=== PATIENT | female | born 1980 | race Caucasian/White ===

== ENCOUNTER 2025-03-06 07:46 | Outpatient (RCR) | payer OTHER, SELFPAY | END 2025-03-06 23:59 | disposition home or self-care (01) | LOC: RPT 07:46 | PROVIDERS: ATTENDING PHYSICIAN Obstetrics & Gynecology; FAMILY PHYSICIAN Family Medicine | DX: N39.3 Stress incontinence (female) (male) (principal); M62.89 Other specified disorders of muscle; Z73.6 Limitation of activities due to disability | CPT/HCPCS: 97162; 97530 ==

== ENCOUNTER 2025-04-04 13:15 | Outpatient (RCR) | payer OTHER, SELFPAY | END 2025-04-04 23:59 | disposition home or self-care (01) | LOC: RPT 13:15 | PROVIDERS: ATTENDING PHYSICIAN Obstetrics & Gynecology; FAMILY PHYSICIAN Family Medicine | DX: N39.3 Stress incontinence (female) (male) (principal); M62.89 Other specified disorders of muscle; Z73.6 Limitation of activities due to disability | CPT/HCPCS: 97110; 97112; 97530 ==

== ENCOUNTER 2025-05-02 08:57 | Outpatient (RCR) | payer OTHER, SELFPAY | END 2025-05-02 23:59 | disposition home or self-care (01) | LOC: RPT 08:57 | PROVIDERS: ATTENDING PHYSICIAN Obstetrics & Gynecology; FAMILY PHYSICIAN Family Medicine | DX: N39.3 Stress incontinence (female) (male) (principal); M62.89 Other specified disorders of muscle; Z73.6 Limitation of activities due to disability | CPT/HCPCS: 97014; 97110; 97112; 97530 ==

== ENCOUNTER 2025-06-06 07:31 | Outpatient (RCR) | payer OTHER, SELFPAY | END 2025-06-06 23:59 | disposition home or self-care (01) | LOC: RPT 07:31 | PROVIDERS: ATTENDING PHYSICIAN Obstetrics & Gynecology; FAMILY PHYSICIAN Family Medicine | DX: N39.3 Stress incontinence (female) (male) (principal); M62.89 Other specified disorders of muscle; Z73.6 Limitation of activities due to disability | CPT/HCPCS: 97014; 97110; 97112; 97530 ==

== ENCOUNTER 2025-06-20 07:02 | Outpatient (RCR) | payer OTHER, SELFPAY | END 2025-06-20 23:59 | disposition home or self-care (01) | LOC: RPT 07:02 | PROVIDERS: ATTENDING PHYSICIAN Obstetrics & Gynecology; FAMILY PHYSICIAN Family Medicine | DX: N39.3 Stress incontinence (female) (male) (principal); M62.89 Other specified disorders of muscle; Z73.6 Limitation of activities due to disability | CPT/HCPCS: 97014; 97110; 97112; 97530 ==

== ENCOUNTER 2025-06-26 09:48 | Emergency (ER) | payer OTHER, SELFPAY ==
--- NOTE | 2025-06-26 10:08 | ED.GENMED ---
History of Present Illness
General
Chief Complaint: Chest Problem
Time Seen by Provider: 06/26/25 09:56
History of Present Illness
History of Present Illness:
FOCUSED PAST MEDICAL HISTORY
- Borderline hyperlipidemia, no history of high blood pressure, never smoked, father had coronary disease in his 70s, not a diabetic
REVIEW OF OLD RECORDS
- The patient was diagnosed with a missed in 2019
Note:
CHIEF COMPLAINT(S)
Chest tightness.
HISTORY OF PRESENT ILLNESS
The patient is a 44-year-old female presenting with a chief complaint of chest tightness that has persisted for a few months. She reports the tightness is constant throughout the day and is noticeable in various situations, such as driving or lying
on her side. The patient also experienced a dry cough over the summer, which seemed to occur during conversations. While she reports becoming slightly winded when climbing stairs quickly, she does not experience discomfort with regular activities or
walking. The tightness is present throughout the day, from the time she wakes up, but she clarifies that it is not of severe pain. She describes being aware of the tightness more than feeling an acute pain. There is no associated shortness of breath
or wheezing, and she denies experiencing significant anxiety. The patient mentions potential costochondral sensitivity, as she feels a sensation when the area is palpated. There is no history of high cholesterol medication use as her cholesterol
levels were only mildly elevated per previous blood work in January. The patient has not seen a balance wheel screw hole driller for these symptoms. Her father had a history of heart attacks in his 70s and has received stents.
PAST MEDICAL AND SURGICAL HISTORY
Higher cholesterol noted in past blood tests.
FAMILY HISTORY
The patients father has a history of heart attacks and has undergone stenting, which began in his 60s.
EXTERNAL RECORDS REVIEWED
According to the patients report, blood work conducted in January showed mildly elevated cholesterol levels.
REVIEW OF SYSTEMS
- Cardiovascular: Persistent tightness in the chest for several months, no worsening with exertion beyond mild windedness.
- Respiratory: No shortness of breath, no wheezing.
- Gastrointestinal: Occasional sensation similar to heartburn but without typical acid reflux.
- Musculoskeletal: Sensation noticed when chest wall is palpated.
PHYSICAL EXAM
General: Alert, no acute distress.
Skin: Warm, dry.
Head: Normocephalic, atraumatic.
Neck: Supple, trachea midline.
Eye, Ears, Nose, Mouth, and Throat: Oral mucosa moist.
Cardiovascular: Normal peripheral perfusion, No edema. Very mild anterior chest wall tenderness.
Respiratory: Respirations are non-labored.
Gastrointestinal: Abdomen nondistended.
Back: Normal range of motion, Normal alignment.
Musculoskeletal: Normal range of motion, normal strength.
Neurological: Alert and oriented to person, place, time, and situation, No focal neurological deficit observed.
Psychiatric: Cooperative, appropriate mood & affect.
PLAN
1. Conduct cardiac blood work to assess for cardiac-related issues.
2. Obtain a chest X-ray for further evaluation of chest tightness.
3. Administer a dose of Pepcid (Famotidine) to assess response regarding any gastroesophageal component.
4. Discuss potential trial of [id number]-[id number] Omeprazole for gastrointestinal symptom relief.
5. Recommend outpatient cardiology referral for further cardiac evaluation.
6. Monitor progress and reevaluate symptoms, especially as related to potential gastrointestinal reflux.
DIFFERENTIAL DIAGNOSIS
The Differential Diagnosis includes, in no particular order and is not limited to:
1. Gastroesophageal Reflux Disease (GERD)
2. Costochondritis
3. Angina Pectoris
4. Non-cardiac chest pain
5. Pulmonary hypertension
6. Anxiety or stress-induced chest pain
7. Esophageal spasm
8. Musculoskeletal pain
9. Coronary Artery Disease
10. Atypical presentation of a cardiac issue
RADIOLOGY
- Chest x-ray
EKG
- Sinus 67, nonspecific ST abnormality with no old to compare
- I did review the EKG from primary care doctor's office which also showed nonspecific ST abnormality
LABS
- Troponin 0.012
UPDATE
-SUMMARY OF ENCOUNTER
The patient, a 44-year-old female, presented to the emergency department (ED) with persistent chest tightness that she has been experiencing for several months. Upon evaluation, cardiac blood work was unremarkable, and her vital signs were stable.
The EKG showed some non-specific abnormalities, which were consistent with previous EKGs and not indicative of any acute condition. A chest x-ray was also performed and appeared normal. Given the absence of acute cardiac findings, the patient was
managed conservatively. A dose of famotidine was administered to assess for any gastrointestinal-related symptoms. The patient was advised that, although immediate quality assurance qa lab analyst intervention was not needed, outpatient follow-up with a balance wheel screw hole driller is
recommended to further assess any potential underlying heart issues, possibly including a stress test or echocardiography. The care plan was formulated to ensure timely cardiology consultation due to the persistence of her symptoms and family
history considerations.
DISPOSITION
Discharge
ASSESSMENT
Chronic chest tightness with non-specific EKG abnormalities, no acute cardiac event.
EMERGENCY TREATMENTS ADMINISTERED
Famotidine
PLAN
The patient is advised to consult with a balance wheel screw hole driller for further evaluation of her symptoms. Outpatient cardiology follow-up is arranged to facilitate levy appointment scheduling. The patient should monitor her symptoms and seek immediate medical
attention if she experiences sweating, severe pressure, or any worsening symptoms. Consideration of qgjz-jrn-fuunzyf omeprazole for potential gastrointestinal symptoms was also discussed.
INDEPENDENT REVIEW OF LABS AND INTERPRETATION OF TESTS
My independent review of the cardiac blood work indicates no acute cardiac abnormalities or need for immediate intervention. My independent interpretation of the EKG reveals non-specific abnormalities not indicative of a specific condition. My
independent interpretation of the chest x-ray shows no acute abnormalities.
PATIENT EDUCATION AND COUNSELING
The patient was informed about the non-specific nature of the EKG abnormalities and reassured of no acute cardiac events based on current evaluations. She was counseled on recognizing symptoms that would warrant returning to the ED, such as
sweating, severe pressure, or any worsening symptoms. The importance of follow-up with cardiology to explore possible underlying conditions was stressed.
FOLLOW-UP INSTRUCTIONS
The patient is instructed to expect contact from a cardiology group for a follow-up appointment in the next day or two. She should return to the ED if she experiences any aggravating symptoms such as sweating, severe chest pressure, or new symptoms.
MEDICATION RECONCILIATION
Famotidine administered.
MEDICAL DECISION MAKING
- Number and Complexity of Problems Addressed: Chronic conditions affecting care: Higher cholesterol noted in past blood tests. Differential diagnosis includes gastroesophageal reflux disease (GERD), costochondritis, angina pectoris, non-cardiac
chest pain, pulmonary hypertension, anxiety or stress-induced chest pain, esophageal spasm, musculoskeletal pain, coronary artery disease, atypical presentation of a cardiac issue.
- Data:
Category 1
External records reviewed: reviewed outpatient pharmacy records and previous blood work indicating mildly elevated cholesterol.
The EKG and chest x-ray were independently interpreted.
- Risk:
Prescription medication was prescribed: Famotidine for evaluation of gastrointestinal symptoms.
Consideration of Admission/Observation: Escalation of care including admission/observation was considered given the complexity and risk of the patients presenting complaint, exam findings, and/or their underlying comorbidities. However, ultimately I
feel the patient is safe for outpatient management with close follow-up. Reasoning: Work-up reassuring, does not reveal any acute life/organ threatening processes, patients symptoms well controlled upon reevaluation, reexamination is reassuring,
vitals are stable, patient agreeable with discharge, reliable for follow-up.
DIAGNOSIS
Chest tightness, unspecified (R07.89)
- The patient was given some Pepcid with questionable improvement
- Other than reported history of borderline hyperlipidemia, no significant cardiac risk factors
- The patient has no exertional component
- The symptoms are not worse today and have been essentially constant for the past 1 to 2 months with normal troponin
- EKG shows nonspecific finding I recommend cardiology follow-up urgently
Phy Exam
Physical Exam
Physical Exam:
See HPI
Course
Orders/Labs/Results
Orders:
Orders
06/26/25 09:53
ECG [Electrocardiogram (*1)] Urgent
Reason for Study: Chest Pain
EKG- Treatment ONCE
06/26/25 09:57
Electrocardiogram (*1) Urgent
Reason for Study: Chest Pain
EKG- Treatment ONCE
06/26/25 10:04
Complete Blood Count/With Diff Urgent
Comprehensive Metabolic Panel Urgent
Troponin I Urgent
06/26/25 10:06
Famotidine [Pepcid] 20 mg IV NOW STA
CR Chest - 2 Views Urgent
Comment:
Reason For Exam: pain
Abnormal Lab Results
06/26/25
10:04
Absolute Monos (auto) 0.7 H 10^3/uL
(0.1-0.6)
Monocytes % 10.0 H %
(1.7-9.3)
Sodium 133 L mmol/L
(135-145)
ALT 39 H U/L
(0-35)
06/26/25 10:04
06/26/25 10:04
Vital Signs
Initial and Last Documented VS:
Initial Vital Signs
Pulse Resp Pulse Ox
67 16 100
06/26/25 09:49 06/26/25 09:49 06/26/25 09:49
Last Documented Vital Signs
Pulse Resp BP Pulse Ox
67 11 116/78 100
06/26/25 10:30 06/26/25 10:30 06/26/25 10:30 06/26/25 10:30
*Pulse Oximetry
SaO2: 100
Oxygen Mode of Delivery: Room air
Patient hypoxic: no
*Critical Care Note
Total Time (30-74mins, 75-104mins- exclusive of procedures): Not Applicable
ED Attending Note
-
Portions of this chart may have been created with voice recognition software.� Occasional wrong word or��sound alike� substitutions may have occurred due to the inherent limitations of voice recognition software.
Discharge Plan
Departure
Patient Disposition: Home (Routine Discharge)
Date of Disposition: 06/26/25
Time of Disposition: 11:01
Patient with high blood pressure during this ER visit?: No
Discharge Problem:
Chest pain
Instructions: Chest Pain DCA Follow Up
Prescriptions:
No Action
PNV no.95-ferrous fumarate-FA [] 1 EACH tablet
1 ea PO DAILY Qty: 0
amoxicillin 500 MG capsule
500 mg PO QID
Referrals:
Meng Gomez DO [Family Provider, Family Practice]
Gerber Saleh MD [Active, Cardiology]
Activity Restrictions/Additional Instructions:
Consider a 2-week course of [id number] omeprazole. I have given the contact information for a local balance wheel screw hole driller that you could follow-up with, Dr. Saleh. Return if you have chest pressure that worsens with exertion or breaking onto a
sweat or shortness of breath.
Interventions
Interventions:
ED- Cardiac Assessment Last Done: 06/26/25 10:16
ED- Pulmonary Assessment Last Done: 06/26/25 10:16
Discharge Date and Time
Print Language: [place]
[2025-06-26] MEDS: PEPCID 20 MG IV (10:11)
[2025-06-26 10:17] LABS: Hematocrit 44.1 % (37.0-47.0); Hemoglobin 15.2 g/dL (12.0-16.0); Mean Corp Hgb Conc. 34.5 g/dL (33.0-37.0); Mean Corpuscular Volume 89.5 fL (81.0-99.0); Nucleated Red Blood Cells % 0 %; Platelet Count 229 10^3/uL (130-400); Red Cell Dist. Width 12.0 % (11.5-14.5)
[2025-06-26 10:30] VITALS: BP 116/78
[2025-06-26 10:39] LABS: ALT (SGPT) 39 U/L (0-35); AST (SGOT) 30 U/L (14-36); Albumin 4.4 g/dl (3.5-5.0); Alkaline Phosphatase 59 U/L (38-126); Blood Urea Nitrogen 17 mg/dl (7-17); Calcium 9.2 mg/dl (8.4-10.2); Carbon Dioxide 26 mmol/L (22-30); Chloride 103 mmol/L (98-107); Glucose 93 mg/dl (70-99); Potassium 4.4 mmol/L (3.5-5.1); Sodium 133 mmol/L (135-145); Total Protein 7.4 g/dl (6.3-8.2); eGFR > 60.00
[2025-06-26 10:42] LABS: Troponin I < 0.012 ng/ml
== END 2025-06-26 11:17 | disposition home or self-care (01) ==
LOC: EMR 09:48
PROVIDERS: EMERGENCY PHYSICIAN Emergency Medicine; FAMILY PHYSICIAN Family Medicine
DX: R07.89 Other chest pain (principal); E78.5 Hyperlipidemia, unspecified
CPT/HCPCS: 96374; 99285; 71046; 80053; 84484; 85025; 93005